=== PATIENT | female | born 1935 | race Caucasian/White ===

== ENCOUNTER 2019-07-13 21:29 | Inpatient (IN) ==
[2019-07-13] MEDS ORDERED: AMIDATE ONE (22:01)
[2019-07-13] MEDS ORDERED: OFIRMEV 1000 MG/ISOTONIC SOLN 1,000 MG/100 ML BOTTLE IV PRN (22:17)
[2019-07-13] MEDS ORDERED: ZOSYN 4.5 GM in NS 100 ML IV SCH (22:30)
[2019-07-13] MEDS ORDERED: VANCOMYCIN 1 GM/NS 1 GM/250 ML IVPB IV SCH (22:30)
[2019-07-13] MEDS ORDERED: MORPHINE IV ONE (22:57)
[2019-07-13] MEDS ORDERED: TRANSDERM-SCOP TD ONE (22:57)
[2019-07-13] MEDS ORDERED: ZOFRAN IV ONE (23:00)
[2019-07-13 23:03] LABS: BASO# 0.09 X1000 (0.0-0.2); BASO% 0.7 % (0.0-0.8); EOS# 0.02 X1000 (0.0-0.7); EOS% 0.2 % (0.0-10.0); HEMATOCRIT 43.3 % (37.0-47.0); IMM GRAN# 0.13 X1000 (0.0-0.04); LYMPH% 21.4 % (20.5-51.1); MCH 27.6 PG (27-31); MCV 91.9 FL (81-99); MONO# 0.51 X1000 (0.11-0.59); MONO% 4.1 % (1.7-9.3); MPV 10.8 FL (7.4-10.4); NEUT# 9.14 X1000 (1.4-6.5); NEUT% 72.6 % (42.2-75.2); PLT 255 X1000 (130-400); RBC 4.71 XMIL (4.2-5.4); RDW 18.5 % (11.5-14.5); WBC 12.59 X1000 (4.8-10.8)
--- NOTE | 2019-07-13 23:09 | PROVIDER DOCUMENTATION ---
This chart was entered by Steffany Talavera Scribe, acting as scribe for Gilma Kay MD. HPI-Respiratory General - General Chief Complaint: Shortness of Breath Stated Complaint: fluid overload, resp distress Time Seen by Provider: 07/13/19 22:06 Source: RN/MD Allergies/Adverse Reactions: Patient Allergies Allergy/AdvReac Type Severity Reaction Status Date / Time amlodipine Allergy Mild Unknown Verified 07/14/19 01:16 Penicillins Allergy Mild RASH Verified 07/14/19 01:16 - History of Present Illness-Resp Nature of Presenting Problem: PT IS AN 83 YOWF PRESENTING TO ER W/EMS AND MD W/CC PT IS A RESIDENT AT [facility] AND EMS WAS CALLED TO FACILITY FOR POSS ASIPIRATION/FULL CODE. CPR STARTED BY RESIDENTIAL STAFF, WHEN EMS ARRIVED, PT HAD PULSE AND THEY BAGGED AND SUCTIONED PT. PT IS LETHARGIC, HAS DECREASED MENTAL STATUS BUT DOES AROUSE TO BEING SUCTIONED. PT IS TACHYCARDIC AND TACHYPNIC IN ER. CHRONICALLY ILL APPEARING AND FRAIL. PT AXILLARY TEMP OF 101.5. Severity in ED: reports: severe Onset/Duration: reports: just prior to arrival Timing: reports: still present Exposure: reports: unknown cause Associated Symptoms: reports: other (RESP DISTRESS/ASPIRATION) Review of Systems - Adult - REVIEW OF SYSTEMS - ADULT ROS:: limited per condition Constitutional: reports: see HPI, fever (101.5 AXILLA TEMP W/EMS), other (LETHARGY, DEC MENTAL STATUS). denies: chills, night sweats Eyes: reports: no symptoms reported Ears, Nose, Mouth & Throat: reports: no symptoms reported Cardiovascular: reports: see HPI, irregular heart rate (TACHYCARDIC). denies: chest pain, edema, palpitations Respiratory: reports: see HPI, other (RESP DISTRESS, ASPIRATION, TACHYPNIC). denies: cough, dyspnea on exertion, excessive sputum production Gastrointestinal: reports: no symptoms reported Genitourinary: reports: no symptoms reported Musculoskeletal: reports: no symptoms reported Integumentary: reports: no symptoms reported Neurological: reports: no symptoms reported Psychiatric: reports: no symptoms reported Endocrine: reports: no symptoms reported Hematologic/Lymphatic: reports: no symptoms reported Allergic/Immunologic: reports: no symptoms reported All Other Systems: Reviewed and Negative Past History - Adult - PAST MEDICAL HISTORY-ADULT Review of Records: reports: Nursing Assessment Review, Medications Reviewed, Social history reviewed & non-contributory. Major Childhood Illnesses: reports: denies history Cardiovascular: reports: blood clots, CHF, HTN, hyperlipidemia Respiratory: reports: denies history Gastrointestinal: reports: denies history Obstetrical/Gynecological: reports: denies history Genitourinary: reports: denies history Musculoskeletal: reports: denies history Neurological: reports: dementia Psychiatric: reports: anxiety, depression, psychiatric problems Endocrine/Immune: reports: thyroid disorder Other Conditions: reports: denies history - PRIOR SURGERIES/PROCEDURES Surgical/Procedure History: reports: other (UNK) - IMMUNIZATION STATUS Childhood Immunizations: See Nurse Assessment Flu Vaccine: See Nurse Assessment - FAMILY HISTORY Family History: reviewed, not pertinent - SOCIAL HISTORY Smoking: non-smoker Substance Use: none/never Physical Exam-General - PHYSICAL EXAM-ADULT Initial Vital Signs Reviewed: Yes - CONSTITUTIONAL General Appearance: severe distress, thin, lethargic, obtunded, other (FRAIL, CHRONIC ILL APPEARING) - EYES Eyes: PERRL/EOMI - HEAD, EARS, NOSE, MOUTH & THROAT HENMT: normocephalic/atraumatic - NECK Neck: non-tender, full range of motion - RESPIRATORY Respiratory: chest non-tender, no pleuratic chest pain, respiratory distress, decreased breath sounds, accessory muscle use, crackles (AUDIBLE), wheezing (AUDIBLE), other (TACHYPNIC). negative: lungs clear, normal breath sounds, no respiratory distress, no accessory muscle use - CARDIOVASCULAR Cardiovascular: normal peripheral pulses, tachycardia. negative: regular rate, rhythm, JVD, bradycardia, extra beats - GASTROINTESTINAL (ABDOMEN) Abdominal Exam: normal bowel sounds, non tender, soft - MUSCULOSKELETAL Back Exam: normal inspection Extremity: no pedal edema - SKIN Integumentary: warm/dry, pallor - NEUROLOGIC Neurologic: other (UNABLE TO TEST DUE TO PT CONDITION) - PSYCHIATRIC Psych/Mental Status: disoriented x 3, other (PT IS AROUSABLE ONLY WHEN BEING SUCTIONED). negative: normal mood/affect, normal thought content, normal thou ght process, oriented x 3 Progress - PLAN OF CARE/RESULTS Progress/Plan/Lab Results: Laboratory Results - last 24 hr 01/22/20 01/22/20 01/22/20 22:00 22:00 22:00 WBC 12.59 H RBC 4.71 Hgb 13.0 Hct 43.3 MCV 91.9 MCH 27.6 MCHC 30.0 L RDW Std Deviation 18.5 H Plt Count 255 MPV 10.8 H Immature Gran % (Auto) 1.0 H Neut % (Auto) 72.6 Lymph % (Auto) 21.4 Sawyer % (Auto) 4.1 Eos % (Auto) 0.2 Baso % (Auto) 0.7 Immature Gran # (Auto) 0.13 H Neut # (Auto) 9.14 H Lymph # (Auto) 2.70 Sawyer # (Auto) 0.51 Eos # (Auto) 0.02 Baso # (Auto) 0.09 Sodium 141 Potassium 4.1 Chloride 98 Carbon Dioxide 24 L Anion Gap 19 BUN 10 Creatinine 0.6 Estimated GFR/1.73 m2 > 60 BUN/Creatinine Ratio 17 Glucose 144 H Calculated Osmolality 283 Calcium 8.7 L Total Bilirubin 0.37 AST 38 H ALT 11 Alkaline Phosphatase 87 Troponin T High Sens Kqf-L-Ssjlxvvznzv Pept Total Protein 7.3 Albumin 3.5 Globulin 3.8 Albumin/Globulin Ratio 0.9 Plasma Lactate 3.7 H 07/13/19 07/13/19 22:00 22:00 WBC RBC Hgb Hct MCV MCH MCHC RDW Std Deviation Plt Count MPV Immature Gran % (Auto) Neut % (Auto) Lymph % (Auto) Sawyer % (Auto) Eos % (Auto) Baso % (Auto) Immature Gran # (Auto) Neut # (Auto) Lymph # (Auto) Sawyer # (Auto) Eos # (Auto) Baso # (Auto) Sodium Potassium Chloride Carbon Dioxide Anion Gap BUN Creatinine Estimated GFR/1.73 m2 BUN/Creatinine Ratio Glucose Calculated Osmolality Calcium Total Bilirubin AST ALT Alkaline Phosphatase Troponin T High Sens 37 H Iej-I-Koclaxlgcmm Pept 3523 H Total Protein Albumin Globulin Albumin/Globulin Ratio Plasma Lactate Orders Category Date Time Status Admit - [facility] Routine AdmDCTranf 07/14/19 02:23 Active Oral Care PRN Care 07/14/19 02:23 Active Oral Care Q4H Care 07/14/19 02:23 Active Resuscitation Status Routine Care 07/13/19 22:47 Ordered Turn Patient Q2 Hours Q2HR Care 07/14/19 02:23 Active Use Oxygen.Protocol ORDERED Care 07/14/19 02:23 Active Vital Signs Order ORDERED Care 07/14/19 02:23 Active Hospice Care Consult [OM.CSS] Routine Cons 07/14/19 02:23 Active Palliative Care Consult [OM.CSS] Routine Cons 07/14/19 08:00 Active BLOOD CULTURE [BLDCUL] Stat Lab 07/13/19 22:00 Results CBC WITH ELECTRONIC DIFF [HEME] Stat Lab 07/13/19 22:00 Completed COMPREHENSIVE METABOLIC PANEL [CHEM] Stat Lab 07/13/19 22:00 Completed LACTATE, PLASMA [CHEM] Stat Lab 07/13/19 22:00 Completed TROPONIN T HIGH SENSITIVITY Stat Lab 07/13/19 22:00 Completed pro-bnp [PRO B-NATRIURETIC PEPTIDE] Stat Lab 07/13/19 22:00 Completed Acetaminophen [Ofirmev 1000 mg/Isotonic Soln] Med 07/13/19 22:17 Discontinued 1,000 mg in 100 ml IV Q6H PRN Acetaminophen [Tylenol] Med 07/14/19 02:23 Active 650 mg MT Q4-6H PRN PRN Atropine 1 % Ophth Soln Med 07/14/19 02:23 Active See Dose Instructions SL Q4H PRN PRN Etomidate [Amidate] Med 07/13/19 22:01 Discontinued 40 mg .ROUTE .STK-MED ONE Hyoscyamine Subl [Levsin-Sl] Med 07/14/19 02:23 Active 0.25 mg SL 4XDAY PRN PRN Lorazepam [Ativan] Med 07/14/19 02:23 Active 0.5 mg IV Q4H PRN PRN Morphine Med 07/13/19 22:57 Discontinued 2 mg IV NOW ONE Morphine Med 07/14/19 02:23 Active See Dose Instructions IV Q2H PRN PRN Ondansetron [Zofran] Med 07/13/19 23:00 Discontinued 4 mg IV NOW ONE Piperacillin/Tazobactam [Zosyn] 4.5 gm Med 07/13/19 22:30 Discontinued 0.9% Sodium Chloride Inj [Ns] 100 ml IV Q6H Scopolamine 1.5 mg/72 Hr Patch [Transderm-Scop] Med 07/14/19 01:30 Active 1 each TD Q72H Vancomycin 1 gm/Ns Med 07/13/19 22:30 Discontinued 1 gm in 250 ml IV Q12H Oral Suction [Suction Therapy] Routine Oth 07/14/19 02:23 Active Transfer/Admit Order [TRANSFER] Routine Transfer 07/13/19 22:55 Completed spesis workup was initiated with patient prior to family arrival. decision was made to intubate patient as she appears she will tire easily and she will not be able to maintain her airway or toerate bipap. As we were preparing for intubated family walked into the room and stated that she actually does have a DNR but the NH lost the records of it and they do not want anything done to her. I asked them if they wasnted her treated for even presumed sepsis and they declined. Comfort measures initiated. Labs had already been drawn prior to confirming comfort measures. I advised that we should treat her temp for comfort measures and will give some morphine and zofran for air hunger. They agreed to this. Spoke to hospitalist manager secondary who accepted patient for admission. Further orders to be placed by their team. Result Diagrams: 07/13/19 22:00 07/13/19 22:00 - EKG 1 Time of EKG reading by physician:: 21:49 EKG Read and Signed by:: Gilma Kay EKG Interpretation (*Must complete 3 of following elements*): Abnormal Rate: 123 Rhythm: Afib with RVR QRS: other (+artifact) ST Wave: non-specific ST changes Departure - Departure Date of Disposition Decision: 07/13/19 Time of Disposition Decision: 23:05 DIAGNOSIS: Comfort measures only status, Sepsis, Respiratory distress, Hypoxia, Advanced dementia Disposition: ADMITTED INPATIENT 09 Certified Medical Emergency: Emergent Condition: Serious - Critical Care Note This patient required my direct & personal management of CC.: Yes Total Time (mins): 35 Critical Care Statement: This patient required my direct personal management to treat or rule out processes, the absence of which, could potentiallly result in sudden, clinically significant life or limb threatening deterioration. Attestation - Physician/ REJI Attestation Patient care was provided by Advanced Practice Provider:: No The physician spent face to face time with patient:: Yes Advanced Practice Provider documentation review:: Supervising physician onsite and consulted in the evaluation and care of this patient. The physician did have a face to face encounter with the patient. This chart was documented by the indicated scribe, (Steffany Talavera, Scribe) and accurately reflects the services I performed and decisions made by me, Gilma Kay MD, as attested by the provider's signature.
[2019-07-13 23:32] LABS: AGAP 19; ALB/GLOB RATIO 0.9; ALBUMIN 3.5 g/dL (3.5-5.0); ALKALINE PHOSPHATASE 87 U/L (32-104); BUN 10 mg/dL (8-22); CALCIUM 8.7 mg/dL (8.8-10.2); CHLORIDE 98 mmol/L (98-107); COSMO 283; CREATININE 0.6 mg/dL (0.5-0.9); ESTIMATED GFR > 60; GLUCOSE 144 mg/dL (70-104); GOT 38 U/L (10-30); GPT 11 U/L (10-36); POTASSIUM 4.1 mmol/L (3.5-5.1); SODIUM 141 mmol/L (136-145); TCO2 24 mmol/L (25-35); TOTAL PROTEIN 7.3 g/dL (6.3-8.3)
[2019-07-13 23:43] LABS: TOTAL BILIRUBIN 0.37 mg/dL (0.20-1.00)
[2019-07-14] MEDS ORDERED: TRANSDERM-SCOP TD SCH (01:30)
[2019-07-14] MEDS ORDERED: TYLENOL PR PRN ×2 (02:23→06:19)
[2019-07-14] MEDS: ATIVAN IV PRN ×5 (02:31→23:49)
[2019-07-14] MEDS: MORPHINE IV PRN ×7 (02:32→23:49)
[2019-07-14] MEDS: LEVSIN-SL SL PRN ×2 (02:32→05:08)
[2019-07-14] MEDS: ATROPINE 1 % OPHTH SOLN SL PRN ×3 (05:08→17:09)
--- NOTE | 2019-07-14 05:48 | HISTORY AND PHYSICAL ---
PRIMARY CARE PROVIDER: The patient is a senior care resident. CHIEF COMPLAINT: Unresponsive. Aspiration per family at bedside. HISTORY OF PRESENT ILLNESS: Ms. Chavira is an 83-year-old female who arrived via EMS from [facility] where she is a resident for possible aspiration and full code. They did initiate CPR in the senior care. When EMS arrived, the patient had a pulse. She was bagged, suctioned, and lethargic with decreased mental status, tachycardic and tachypneic. She appeared to be critically ill and frail with a temperature of 101.5 degrees. She was given IV Tylenol. Family has now arrived, and they do wish to make the patient DNR level 1 with comfort measures only. This was discussed with them by Dr. Arguelles and myself. The patient is in the end stages of Alzheimer's dementia. They did report that the patient has a DNR 1, but the senior care lost the paperwork so we will get the patient in a private room, and discontinue all antibiotics and further lab work. She is currently on a nonrebreather. They are asking that she be taken off and placed on nasal cannula. We will place her on comfort measure protocol. PAST MEDICAL HISTORY: Blood clots, congestive heart failure, hypertension, hyperlipidemia, depression, psychiatric problems, thyroid disorder, and end-stage of Alzheimer's dementia. PAST SURGICAL HISTORY: Unknown. FAMILY HISTORY: Unknown. SOCIAL HISTORY: She was never a smoker. She is a long-term resident at [facility]. REVIEW OF SYSTEMS: Hard to obtain secondary to the patient being critically ill, lethargic, and pretty much obtunded. PHYSICAL EXAMINATION: VITAL SIGNS: Temperature 98 degrees, heart rate 122, respirations 14, blood pressure 137/64, and O2 is 88% on nonrebreather. GENERAL: Ms. Chavira is a critically ill-appearing patient. Family at bedside wishing for comfort measures. HEENT: Atraumatic, normocephalic. PERRL. NECK: Supple. Trachea midline. CV: Tachycardic. S1 and S2 appreciated. RESPIRATORY: Lung sounds with audible crackles, and use of accessory muscles. Decreased breath sounds. Tachypneic. ABDOMEN: Appeared to be soft, nontender, and nondistended. Positive bowel sounds 4 quadrants. EXTREMITIES: Upper extremities especially in the hands shows signs of cyanosis. Lower extremity with some generalized edema. NEUROLOGIC: The patient is lethargic almost to the point of being obtunded. Per ED report, she was arousable only when being suctioned. LABORATORY DATA: White count 12, hemoglobin and hematocrit 13 and 43, and platelet count of 255,000. Sodium 141, potassium 4.1, BUN 10, creatinine 0.6, blood glucose 144, AST 38, and plasma lactate was 3.7. ASSESSMENT AND PLAN: Probable status post respiratory arrest secondary to aspiration. Per ED report, there was CPR in progress when EMS arrived. The patient now has family at bedside. They reported she was a DNR I in the senior care. However, they lost her paperwork. They did not want the patient to be intubated. They were about to be in the process of intubation, that was stopped. She was placed on a nonrebreather. Patient's family is requesting that she be placed on nasal cannula, made a DNR, and placed on comfort measures only. They do not wish for any more lab work, IV fluids or antibiotics. We will go ahead and treat her fever, provide her with pain medicine, Zofran and place her on comfort measure protocol. We will also consult [facility] in the morning if necessary. Dictated by MAINE Read for Angeline Arguelles MD cc: MD Mitch Oliva MD Independent exam done by ks. The above plan of care was discussed with OPS MANAGER. Discussed with family regarding comfort measures. TAMMY
[2019-07-14] MEDS ORDERED: MYCELEX TROCHE PO PRN (06:07)
[2019-07-14] MEDS ORDERED: MYCOSTATIN SUSP PO PRN ×2 (06:08→07:09)
[2019-07-14] MEDS ORDERED: SODIUM CHLORIDE 0.9% PRN (06:09)
[2019-07-14] MEDS ORDERED: LOMOTIL PO PRN (06:10)
[2019-07-14] MEDS ORDERED: PHENERGAN PO PRN (06:13)
[2019-07-14] MEDS ORDERED: COMPAZINE PO PRN (06:14)
[2019-07-14] MEDS ORDERED: IMODIUM PO SCH (06:15)
[2019-07-14] MEDS ORDERED: HALDOL PO PRN ×2 (06:16→06:59)
[2019-07-14] MEDS ORDERED: PYRIDIUM PO PRN (06:17)
[2019-07-14] MEDS ORDERED: TYLENOL PO PRN (06:19)
[2019-07-14] MEDS ORDERED: MOTRIN PO PRN (06:21)
[2019-07-14] MEDS ORDERED: NORCO-5 PO PRN (06:22)
[2019-07-14] MEDS ORDERED: HYDROCODONE/APAP 7.5-325/15 ML PO PRN (06:23)
[2019-07-14] MEDS: REGLAN PO SCH ×4 (06:34→23:48)
[2019-07-14] MEDS ORDERED: PEPCID PO PRN (06:50)
[2019-07-14] MEDS ORDERED: REGLAN PO PRN (06:51)
[2019-07-14] MEDS ORDERED: LEVSIN-SL SL PRN (06:53)
[2019-07-14] MEDS ORDERED: MYLICON PO PRN (06:54)
[2019-07-14] MEDS ORDERED: LORAZEPAM ORAL CONCENTRATE PO PRN (06:57)
[2019-07-14] MEDS ORDERED: ATIVAN IV PRN (06:58)
[2019-07-14] MEDS ORDERED: RISPERDAL PO PRN (07:00)
[2019-07-14] MEDS ORDERED: LASIX PO PRN (07:03)
[2019-07-14] MEDS ORDERED: BENADRYL PO PRN (07:10)
[2019-07-14] MEDS ORDERED: ATROPINE 1 % OPHTH SOLN SL PRN (07:21)
[2019-07-14] MEDS ORDERED: ROBITUSSIN-DM PO PRN (07:24)
[2019-07-14] MEDS: PRILOSEC PO SCH (07:26)
[2019-07-14] MEDS ORDERED: TESSALON PO PRN (07:28)
[2019-07-14] MEDS ORDERED: MILK OF MAGNESIA PO PRN (07:30)
[2019-07-14] MEDS ORDERED: DULCOLAX PR PRN (07:31)
[2019-07-14] MEDS ORDERED: SORBITOL PO PRN (07:32)
[2019-07-14] MEDS ORDERED: RESTORIL PO PRN (07:36)
[2019-07-14] MEDS ORDERED: DESYREL PO PRN (07:37)
--- NOTE | 2019-07-14 08:02 | EKG Report ---
Test Performed on : 07/13/2019 9:47:07 PM Test Reason : ED. NO EKG ORDER FOR MUSE Blood Pressure : / mmHG Vent. Rate : 123 BPM Atrial Rate : 208 BPM P-R Int : 000 ms QRS Dur : 090 ms QT Int : 312 ms P-R-T Axes : 000 039 228 degrees QTc Int : 446 ms Atrial fibrillation. with rapid ventricular response. Septal infarct , age undetermined Marked ST abnormality, possible inferior subendocardial injury Marked ST abnormality, possible anterolateral subendocardial injury Abnormal ECG No previous ECGs available Unconfirmed Result
--- NOTE | 2019-07-14 20:03 | PROGRESS NOTE ---
DATE: 07/14/2019 SUBJECTIVE: 83-year-old white female patient, resident of [facility], admitted with shortness of breath and respiratory distress. The patient was tachycardic and tachypneic at the [facility]. The patient was also lethargic. Patient was critically ill. Patient had 101.5 fever. Patient was brought to emergency room, evaluated by ER physician. The patient had a very complex medical history, history of DVT, congestive heart failure, hypertension, hyperlipidemia, depression, Alzheimer's type dementia. Admission history and physical noted. OBJECTIVE: Vital Signs: Noted. When I evaluated patient in the morning and again this afternoon, her vital signs were temperature 100.1 degrees, heart rate 103, blood pressure 85/39, respiratory rate was ranging from 14 to 22. Neck: Supple. No JVD. Lungs: Decreased air entry in both bases. Cardiovascular: S1 and S2 heard. Tachycardia. 2/6 systolic murmur at the apex. Abdomen: Soft, globular. Bowel sounds present. Extremities: No cyanosis, clubbing. No acute DVT. CONSTRUCTION STONEMASON: Alert, awake, able to move all 4 limbs. General: The patient is lying in the bed, poorly responsive. CONSIDERATIONS: 1. Hypoxemic respiratory failure, possible aspiration pneumonia. 2. History of deep venous thrombosis in the past. 3. History suggestive of congestive heart failure. LABORATORY DATA: Lab data on admission reviewed. When I rechecked her this afternoon, her daughter was present. Family does not want any aggressive intervention as per patient's wishes. They requested comfort care only, Do Not Resuscitate 1, and will respect patient's and family's wishes. We got hospice evaluation. cc: Mitch Calderon MD
[2019-07-15] MEDS: REGLAN PO SCH ×3 (06:54→15:26)
[2019-07-15] MEDS: PRILOSEC PO SCH (06:54)
[2019-07-15] MEDS: ATIVAN IV PRN ×2 (07:51→12:59)
[2019-07-15] MEDS: MORPHINE IV PRN ×3 (07:52→12:59)
--- NOTE | 2019-07-15 12:27 | DISCHARGE SUMMARY ---
ADMISSION DATE: 07/14/2019 DISCHARGE DATE: FINAL DISCHARGE DIAGNOSES: 1. Aspiration pneumonia. 2. Respiratory failure. 3. Advanced Alzheimer's type dementia. 4. History of deep venous thrombosis and pulmonary embolism. 5. Congestive heart failure. 6. Depression. HISTORY OF PRESENT ILLNESS: Ms. Chavira is an 83-year-old white female patient, resident of [facility], admitted with respiratory failure. Patient was tachycardic, tachypneic. The patient was lethargic, decreased mental status. The rest of the information from admission history and physical. The patient did have respiratory failure. ER physician, there was chance the patient was about to intubate. Family member requested DNR level 1 and comfort care only. They denied any treatment as per patient's wishes even including oxygen, but I told them oxygen is kind of her comfort care and they agreed. They denied any IV antibiotics, IV fluids. We did inpatient hospice evaluation and according to hospice, she did not qualify. We watched the patient closely. At times, her O2 saturation dropped and we gave her oxygen. The patient's clinical condition remained stable. We gave her p.r.n. Ativan and morphine. I had a lengthy discussion with the patient's family daughter who was next of kin, and the son. They both were in agreement. If we want to do comfort care only, I told them we can do it at the residential and they were in agreement. I am going to transfer the patient back to the residential. I explained to them considering her condition, her condition can deteriorate on the way and she can on the way. They did understand. I am going to transfer her back to residential and we are going to get hospice evaluation. They did agree with comfort care hospice at the residential. We will do comfort care only. cc: Mitch Calderon MD
[2019-07-15 15:43] VITALS: BP 86/43
--- NOTE | 2019-08-07 15:44 | DISCHARGE SUMMARY ---
ADMISSION DATE: 07/14/2019 DISCHARGE DATE: 07/15/2019 ADDENDUM: The patient's presentation was consistent with systemic inflammatory response syndrome secondary to aspiration pneumonia. cc: Mitch Calderon MD
== END 2019-07-15 17:17 | disposition hospice, home (50) | DRG 177 ==
LOC: ED 21:29 → 3N 07-14 01:04
PROVIDERS: ADMIT Internal Medicine; ATTEND Internal Medicine